=== PATIENT | female | born 1965 | race Hispanic/Latino ===

== ENCOUNTER 2024-01-04 13:52 | Emergency (ER) | payer OTHER, SELFPAY ==
[2024-01-04 13:55] VITALS: BP 142/100
--- NOTE | 2024-01-04 13:59 | ED.GENMED ---
ED Provider Triage
<Olga Vela PA-C - Last Filed: 01/04/24 17:26>
-
Patient seen by provider in Triage?: Seen in Triage
Attestation: A medical screening examination has been initiated by a qualified medical provider. Based on the assessment performed at this time, it has been determined that an emergent medical condition may exist and the patient has been informed
that further medical evaluation and possible additional diagnostic testing may be needed.
HPI: 58yoF here after a facial injury. She was riding a horse when the horse threw head back hitting her nose. Here with nasal swelling and epistaxis. No active bleeding in triage. Was wearing a helmet. No LOC. Hx of metastatic breast cancer on
chemo. Currently on hold due to upcoming bronchoscopy.
GENERAL: Alert , in no apparent distress
EYE: No visual abnormalities.
NECK: Trachea midline
ENT: No visible abnormalities.
LUNGS: No acute respiratory distress
NEUROLOGICAL: Alert and oriented
SKIN: Skin intact. No visible changes.
MUSCULOSKELETAL: Moving extremities normally
PSYCH: Normal and appropriate interaction.
This is a medical evaluation conducted in person to initiate diagnostic evaluation and provide initial therapeutics. Please see further documentation by the treating clinician.
CT head and facial bones ordered.
History of Present Illness
<Olga Vela PA-C - Last Filed: 01/04/24 17:26>
General
Chief Complaint: Head Injury
Time Seen by Provider: 01/04/24 14:35
<Xu Lundberg MD - Last Filed: 01/04/24 17:19>
General
Source: patient and family
Exam Limitations: none
Nursing documentation reviewed up to this point in time: agreed with
History of Present Illness
History of Present Illness:
58-year-old female with a past medical history of metastatic breast cancer, hypothyroidism who presents to the emergency room with her and son for evaluation of facial trauma. Patient was riding a horse just prior to arrival here when the
horse lifted his head and patient was struck by the horse's head directly in the nose. Patient was wearing a helmet, did not fall off the horse. She did not lose consciousness. She did sustain injury to the nose and has swelling and initially had
epistaxis as well. Bleeding seems to have stopped by the time of my assessment. She complains only of soreness in the nose but denies headache. Denies neck pain. Denies back pain. Denies chest or abdominal pain. Denies any pain in the
extremities. Again�did not fall off the horse and was only struck in the face.
Review of Systems
<Xu Lundberg MD - Last Filed: 01/04/24 17:19>
Review of Systems
All Other Systems: ROS reviewed and negative except as documented in HPI and ROS
EENT: Reports other (Nasal swelling, pain, epistaxis)
Cardiac: Denies chest pain
ABD/GI: Denies abdominal pain, nausea or vomiting
: Denies flank pain
Musculoskeletal: Denies joint pain, neck pain or back pain
Neurological: Denies headache
Phy Exam
<Xu Lundberg MD - Last Filed: 01/04/24 17:19>
Physical Exam
Physical Exam:
General: Awake, alert, oriented x3; no acute distress
Head: Normocephalic, no cephalhematoma, patient has significant swelling and ecchymosis along the nasal bridge and tenderness in this area; no tenderness in the maxillary or zygomatic region, no tenderness along the mandible, no tenderness of the
forehead, no lacerations or abrasions
Nose: Swelling, bruising, tenderness of the nose, no active bleeding, no septal hematoma, slight deviation of the nose towards the right
Eyes: Conjunctiva normal, EOMI, pupils equal round and reactive to light bilaterally
Throat: Airway intact, handling secretions
Neck: Trachea midline, no cervical spine tenderness
Back: No tenderness in the thoracic or lumbar spine
Lungs: Breathing comfortably no distress
Heart: Regular rate
Neuro: No gross deficits
Extremities: Atraumatic, ambulatory
Scores
<Xu Lundberg MD - Last Filed: 01/04/24 17:19>
Heart Failure Risk
Heart Failure Risk Score: Not Applicable
Heart Score for Chest Pain Patients
STEMI patient?: Not applicable
Withdrawal Assessment of Alcohol
Withdrawal Assessment Completed?: Not applicable
Course
<Olga Vela PA-C - Last Filed: 01/04/24 17:26>
Orders/Labs/Results
Orders:
Orders
01/04/24 14:02
CT Facial Bones W/o Iv Contras Urgent
Comment:
Reason For Exam: Nasal injury
CT Head W/o Iv Contrast Urgent
Comment:
Reason For Exam: Head injury
01/04/24 15:20
Ibuprofen [Motrin] 400 mg PO NOW STA
Vital Signs
Initial and Last Documented VS:
Initial Vital Signs
Temp Pulse Resp BP Pulse Ox
98.2 F 98 18 142/100 98
01/04/24 13:55 01/04/24 13:55 01/04/24 13:55 01/04/24 13:55 01/04/24 13:55
Last Documented Vital Signs
Temp Pulse Resp BP Pulse Ox
98.2 F 98 18 142/100 98
01/04/24 13:55 01/04/24 13:55 01/04/24 13:55 01/04/24 13:55 01/04/24 13:55
<Xu Lundberg MD - Last Filed: 01/04/24 17:19>
Orders/Labs/Results
Orders:
Orders
01/04/24 14:02
CT Facial Bones W/o Iv Contras Urgent
Comment:
Reason For Exam: Nasal injury
CT Head W/o Iv Contrast Urgent
Comment:
Reason For Exam: Head injury
01/04/24 15:20
Ibuprofen [Motrin] 400 mg PO NOW STA
Vital Signs
Initial and Last Documented VS:
Initial Vital Signs
Temp Pulse Resp BP Pulse Ox
98.2 F 98 18 142/100 98
01/04/24 13:55 01/04/24 13:55 01/04/24 13:55 01/04/24 13:55 01/04/24 13:55
Last Documented Vital Signs
Temp Pulse Resp BP Pulse Ox
98.2 F 98 18 142/100 98
01/04/24 13:55 01/04/24 13:55 01/04/24 13:55 01/04/24 13:55 01/04/24 13:55
<Xu Lundberg MD - Last Filed: 01/04/24 17:19>
MDM/Problems Addressed
Differential Diagnosis Includes:
Nasal fracture, nasal contusion, orbital fracture, intracranial hemorrhage
MDM/Problems Addressed:
58-year-old female presents after being struck by a horse in the face when the horse bucked its head up. Patient was not thrown from the horse, only sustained localized trauma to the nose. She initially had some epistaxis which is stopped. Vitals
and exam as above. She is not on blood thinners. Will send for CT head and facial bones. Motrin for pain. Reassess after the above.
CT head and facial bones reviewed: Positive for nasal fracture. She does have some deviation of the nose and displacement of the fracture on CT however she has marked swelling of the nasal bridge, will need to follow-up with ENT for reduction when
swelling has improved. Will start on prophylactic antibiotic. I had a long discussion with patient and her son to discuss results, plan and need for very close outpatient follow-up. Advised to ice the nose aggressively and use Tylenol as needed
for pain. They feel comfortable with this plan. Spoke about return precautions all questions answered.
Acute Exacerbation and/or Progression of Chronic Illness: HTN
<Xu Lundberg MD - Last Filed: 01/04/24 17:19>
*Radiology
Radiology exam reviewed: radiology read reviewed
*Pulse Oximetry
Patient hypoxic: no
*Critical Care Note
Total Time (30-74mins, 75-104mins- exclusive of procedures): Not Applicable
Data Reviewed
Source: patient and family
ED Attending Note
<Olga Vela PA-C - Last Filed: 01/04/24 17:26>
-
Portions of this chart may have been created with voice recognition software.� Occasional wrong word or��sound alike� substitutions may have occurred due to the inherent limitations of voice recognition software.
Discharge Plan
Departure
Patient Disposition: Home (Routine Discharge)
Date of Disposition: 01/04/24
Time of Disposition: 15:43
Patient with high blood pressure during this ER visit?: Yes
Discharge Problem:
Fracture of nasal bone
Instructions: Nose Fracture ED
Prescriptions:
New
amoxicillin-pot clavulanate 875-125 mg tablet
1 tab PO BID Qty: 14 0RF
Referrals:
Conner Valero MD [Active] - Follow up in 5-7 days (Follow up with ENT in 5-7 days)
Activity Restrictions/Additional Instructions:
Thank you for visiting the Emergency Department at [facility].
1. Please schedule a follow up appointment as directed. Call first thing tomorrow morning to make an appointment.
2. If indicated, please take your medications as instructed and indicated on discharge paperwork.
3. If any of your symptoms do not improve, or persist, or become more severe within 6-12 hours, please return to the emergency department for further care.
4. Please return to the emergency department if you develop a headache, neck pain/stiffness, fever greater than 100.4F, chest pain, shortness of breath, persistent nausea, vomiting, slurred speech, difficulty walking, numbness/tingling, weakness,
signs of infection or any other symptoms that are worrisome to you.
Please call [phone] if you have any questions.
Interventions
Interventions:
*Risk Screen - Suicide Last Done: 01/04/24 13:55
*General Assessment Last Done: 01/04/24 13:55
*Neglect/Abuse Screening Last Done: 01/04/24 13:55
ED- Fall Risk Assessment Last Done: 01/04/24 15:50
*ED COVID-19 Vaccine History Last Done: 01/04/24 13:55
*Nursing Disposition Last Done: 01/04/24 15:50
ED-Skin Assessment Last Done: 01/04/24 15:49
ED- Neurological Assessment Last Done: 01/04/24 15:49
Discharge Date and Time
Discharge Date/Time: 01/04/24 15:50
Print Language: MONGOLIAN
[2024-01-04] MEDS: MOTRIN 400 MG PO (15:28)
== END 2024-01-04 15:50 | disposition home or self-care (01) ==
LOC: EMR 13:52
PROVIDERS: EMERGENCY PHYSICIAN Emergency Medicine
DX: S02.2XXA Fracture of nasal bones, initial encounter for closed fracture (principal); W55.12XA Struck by horse, initial encounter; Y93.52 Activity, horseback riding; E03.9 Hypothyroidism, unspecified; Z85.3 Personal history of malignant neoplasm of breast
CPT/HCPCS: 99284; 70450; 70486